=== PATIENT | male | born 1940 | race Caucasian/White ===

== ENCOUNTER → 2017-02-08 | Day surgery (SDC) | payer OTHER ==
[~2017-02-08] MED LIST: ASPI81CH CHEW; GLIM1 PO; HYDR25TA5 PO; LACTATED RINGER'S 1000 ML INJ 1,000 ML ONE; LIDOCAINE 1%/EPINEPHrine 1:100,000 SOLN 50 ML VIAL ONE; METO50TA11 PO; NORC5TAB PO; ONDANSETRON HCL 4 MG/2 ML VIAL IV PUSH ONE; PERI8.6T PO; PRAV20TA PO; PROPOFOL 200 MG/20 ML AMP IV ONE; WALKER WHEELS/F1 MIS; ceFAZolin 2 GM PREMIX 50 ML ONE
--- NOTE | 2017-02-08 15:12 | TN ---
cc: GRACE TRUJILLO M.D. DATE OF SURGERY: 02/08/2017 PREOPERATIVE DIAGNOSIS 1. Right chest wall abscess. 2. History of liver abscess with drain. POSTOPERATIVE DIAGNOSIS 1. Right chest wall abscess. 2. History of liver abscess with drain. PROCEDURE Wide local excision right chest wall sinus tract and abscess with placement of Avance Flex vacuum type dressing, wound measuring 7 x 2 x [address] Grace Trujillo POLYETHYLENE COMBINER Brenna Suarez [employer] ANESTHESIA General. INDICATIONS This is a 76-year-old gentleman who was recently hospitalized with a liver abscess. Where the drainage tube was removed he has had persistent chronic inflammatory change and purulent drainage. He has been treated with antibiotics on multiple occasions without resolution of the drainage. He presents for definitive surgical treatment. INTRAOPERATIVE FINDINGS Sinus tract extending down through the right pectoralis muscle. All chronically inflamed, indurated and granulating tissue was excised. Purulent fluid was sent for Gram stain culture and sensitivity. Tissue was sent to pathology. ESTIMATED BLOOD LOSS Less than 5 mL. This procedure was assisted by my nurse practitioner. A nurse practitioner's specific skill set was medically necessary to provide deficient care and adequate exposure of the procedure. The certified surgical tech/first assistant was at the back table providing appropriate instrumentation during the procedure while the nurse practitioner was directly assisting me through the entirety of the procedure. DESCRIPTION OF PROCEDURE IN DETAIL The patient was identified as Vance Toribio, taken to the operating room and placed in supine position. Sequential compression devices were placed on bilateral lower extremities. Following induction of adequate general anesthesia the patient's area of concern on the right chest wall was prepped and draped in the usual sterile fashion with Betadine. A timeout procedure was performed. Following completion of the timeout procedure to everyone's satisfaction within the room, the proposed incision area was infiltrated with local anesthetic. A mosquito hemostat was used to probe the sinus tract exit site and appeared to go almost perpendicular to the skin. An elliptical incision including the sinus tract was made with a scalpel and hemostasis controlled with electrocautery. Dissection continued posteriorly through the subcutaneous fatty tissue down to the pectoralis muscle. A small abscess cavity was entered and this fluid was sent for Gram stain, culture and sensitivity. All chronic granulation tissue, inflamed tissue and indurated tissue was excised using a combination of sharp dissection and electrocautery. The chronic granulating tissue extended down into the pectoralis muscle and that tissue was excised as well. Once all involved tissue was excised completely the wound was irrigated copiously with saline. The incision was extended slightly laterally for about 4 cm to allow for the wound to be completely exposed. Small bleeding points were controlled with electrocautery. The wound was measured at 7 x 2 x 2 cm in size. A vacuum dressing made by [employer] called Avance Flex was used. A green sponge was provided and it was cut into a football shape to fill the wound. It was placed within the wound and the wound VAC type dressing was placed in a traditional manner applying Mastisol and clear adhesive over the dressing. The small opening in the dressing was excised and it was connected to the vacuum container. It was turned on and there was good seal and suction of the Avance Flax dressing. The patient tolerated the procedure without apparent complication. Sponge, needle and instrument counts were correct at the end of the case. MD HAIDER Osborn/MARILYNN /2:53 PM /3:02 PM
== END | disposition home or self-care (01) ==
LOC: ESDC 12:02
PROVIDERS: ATTEND Surgery Trauma Surgery
DX: L02.213 Cutaneous abscess of chest wall (principal); K75.0 Abscess of liver
CPT/HCPCS: 00400; 21554; 87070; 87205; 88305; J0690; J2405; J3010; J7120